=== PATIENT | female | born 1950 | race Caucasian/White ===

== ENCOUNTER 2017-03-01 19:55 | Emergency (ER) | payer BC, OTHER ==
[~2017-03-01] VITALS: Ht 167.6 cm; Wt 102.5 kg
[~2017-03-01 19:55] MED LIST: AMLODIPINE BESY10 MG PO; ATORVASTATIN CA20 MG PO; DAILY VALUE1 EACH PO; JANUMET 50/11 TABLET PO; LANTUS 3 M100 UNITS1 SC; LOSARTAN-HCTZ1 EAC1 PO; OMEPRAZOLE20 MG PO; TOPROL XL50 MG PO
[2017-03-01 21:07] LABS: HEMATOCRIT 35.6 % (36.0-46.0); MCH 27.8 PG (29.0-34.0); MCHC 33.7 G/DL (30.0-36.0); MCV 82.6 FL (83-99); MEAN PLAT.VOLUME 11.3 uM^3 (9.5-12.4); PLATELET COUNT 234 K/uL (156-360); RBC DIS.WIDTH-CV 13.7 % (11.8-14.6); RBC DIS.WIDTH-SD 41.4 % (39-53); RED BLOOD COUNT 4.31 M/uL (3.80-5.20); WHITE BLOOD COUNT 13.6 K/uL (4.1-10.2)
[2017-03-01 21:10] LABS: CHLORIDE 94 mEq/L (99-109); POTASSIUM 3.4 mEq/L (3.7-5.4); SODIUM 132 mEq/L (136-147)
[2017-03-01 21:12] LABS: GLUCOSE 176 mg/dL (70-99)
[2017-03-01 21:13] LABS: ANION GAP 15 MEQ/L (2-14)
[2017-03-01 21:14] LABS: TOTAL BILIRUBIN 0.8 mg/dL (0.0-1.0)
[2017-03-01 21:15] LABS: ALKALINE PHOSPHATASE 56 IU/L (3-129)
[2017-03-01 21:16] LABS: GFR ESTIMATE (CALCULATED) 27 mL/min/
[2017-03-01 21:16] LABS: ADD MIUA? YES; BILIRUBIN NEGATIVE; BLOOD LARGE; GLUCOSE (STRIP) NEGATIVE; KETONES NEGATIVE; LEUKOCYTES LARGE; NITRITE NEGATIVE; PROTEIN (STRIP) 100; SPECIFIC GRAVITY 1.015 (1.000-1.030); UROBILINOGEN 0.2 MG/DL (0.2-1.0)
[2017-03-01 21:17] LABS: UREA NITROGEN (BUN) 35 mg/dL (9-23)
[2017-03-01 21:19] LABS: COLOR YELLOW ((YELLOW))
[2017-03-01 21:31] LABS: BACTERIA 3+ /HPF; EPITHELIAL CELLS 1+ /HPF; MUCUS NONE SEEN /LPF; UCUL ADDED? YES; WHITE BLOOD CELLS TNTC /HPF (0-5)
[2017-03-02] MEDS ORDERED: KEFLEX500 MG PO (00:31)
[2017-03-02 00:57] VITALS: BP 120/67
== END 2017-03-02 00:58 | disposition home or self-care (01) ==
LOC: RME 19:55 → EME 19:55 → RME 03-02 00:58
DX: N39.0 Urinary tract infection, site not specified (principal); N17.9 Acute kidney failure, unspecified; E86.0 Dehydration; R19.7 Diarrhea, unspecified; I10 Essential (primary) hypertension; E78.5 Hyperlipidemia, unspecified; E11.9 Type 2 diabetes mellitus without complications; Z79.4 Long term (current) use of insulin
CPT/HCPCS: 80053; 81003; 85027; 87077; 87086; 87186; 99281; 99284; J0696; J7030